=== PATIENT | female | born 1940 | race Caucasian/White ===

== ENCOUNTER → 2017-09-23 | Day surgery (SDC) | payer MEDICARE ==
[~2017-09-23] VITALS: Ht 175.3 cm; Wt 90.8 kg
[~2017-09-23] MED LIST: ALPR0.25 PO; AMLO5TAB2 PO; APIX5TAB PO; CHLORHEXIDINE GLUCONATE 2 % 1 PACK (2 CLOTHS) TOPICAL PRN; COLL30T TOPICAL; DILT60TA PO; DIPH1TAB PO; FLURBIPROFEN 0.03% OPHT SOLN 2.5 ML BTL LEFT EYE SCH; FLUT1INH INH; FURO40TA PO; HYALURONIDASE/LIDOCAINE/BUPIVACAINE 5 ML SYR LEFT EYE ONE; HYALURONIDASE/LIDOCAINE/EPINEPHRINE/BUPIVACAINE 6 ML SYR LEFT EYE ONE; IBUP200T47 PO; INSU1INJ5 SQ; INSULIN HUMAN REGULAR 1,000 UNITS/10 ML VIAL SQ PRN; IPRASOL INH; LACTATED RINGER'S 1000 ML IV PRN; LEVO150T7 PO; LIDOCAINE HCL 1% PF 30 ML VIAL ONE; LISI2.5T3 PO; METF500T PO; METOPROLOL TARTRATE 25 MG TAB PO PRN; NOVOLOGP2 SQ; OMEP20TA93 PO; OXYGENDME NAS.CANULA; PAXI10TA8 PO; PHENYLEPHRINE HCL 10 MG/ML VIAL ONE; POVIDONE IODINE 5% (ANTISEPSIS KIT) 4 APPLICATIONS EACH NARE PRN; PRED10 PO; PROP40TA3 PO; PROPARACAINE HCL 0.5% OPHT SOLN 15 ML BTL LEFT EYE ONE; PROPOFOL 200 MG/20 ML AMP ONE; SIMV40TA PO; SODIUM CHLORID 0.9% 500 ML IV PRN; TOBRAMYCIN/DEXAMETHASONE OPTH OINT 3.5 GM TUBE ONE
[2017-09-23] MEDS: CYCLOPENTOLATE HCL 1% OPHT SOLN 2 ML BTL LEFT EYE SCH ×4 (07:44→07:59)
[2017-09-23] MEDS: TROPICAMIDE 1% OPHT SOLN 15 ML BTL LEFT EYE SCH ×4 (07:44→07:59)
[2017-09-23] MEDS: PHENYLEPHRINE HCL 10% OPTH SOLN 5 ML BTL LEFT EYE SCH ×4 (07:44→07:59)
[2017-09-23 07:45] VITALS: PULSE 61
[2017-09-23 08:34] VITALS: PULSE 86
[2017-09-23 09:45] VITALS: BP 118/48; PULSE 62; RESP 16; TEMP 97.5; O2SAT 97
--- NOTE | 2017-09-24 05:31 | MP ---
cc: JOSEPH VALDEZ M.D. [facility] #: [id number] DATE: 09/23/2017 PREOPERATIVE DIAGNOSIS: Visually significant cataract left eye. POSTOPERATIVE DIAGNOSIS: Visually significant cataract left eye. OPERATION: Phacoemulsification with posterior chamber lens implantation, left eye. SURGEON: Joseph Valdez MD ANESTHESIA: Retrobulbar with MAC. COMPLICATIONS: None. PROCEDURE: After informed consent was obtained, the patient was brought into the operative suite and placed on appropriate monitors by the Anesthesia Service. The patient had received a prior retrobulbar injection of local anesthetic by the Anesthesia Service in the holding area. The patient's operative eye was then prepped and draped in the usual sterile fashion. A wire lid speculum was placed. A paracentesis incision was made in the peripheral cornea with a 1 mm yuval keratome. The anterior chamber was filled with viscoelastic. The anterior chamber was then entered through a stepped, clear corneal incision using a sharp 3 mm yuval keratome. A circular tear capsulorrhexis was then made with a bent needle cystitome. Following hydrodissection of the lens nucleus with balanced saline, phacoemulsification of the nucleus was performed using a modified chopping technique. The remaining cortex was removed with irrigation/aspiration. The prior two procedures were both performed using the handpieces of the [employer] phaco unit. The capsular bag was then filled with viscoelastic. The intraocular lens was then injected into the capsular bag and positioned. The type of intraocular lens and its power can be found elsewhere in this chart. The remaining viscoelastic was then removed from the anterior chamber with the IA handpiece. The anterior chamber was reformed with balanced saline. The wound was then closed securely with stromal hydration. It was found to be watertight to an intraocular pressure of at least 30 mmHg by palpation. A small amount of balanced salt solution was then removed through the paracentesis site and the intraocular pressure at the end of the case was approximately 20 by palpation. All drapes were then removed. TobraDex ointment was then placed in the eye, which was closed beneath a semi-pressure patch dressing. The patient tolerated this procedure well and left the operating room awake and alert. The patient is to follow-up in my office in the morning. Joseph Valdez MD [facility]/SS[facility] /3:00 PM /5:30 AM
== END | disposition home or self-care (01) ==
LOC: PHSDC 06:48
PROVIDERS: ATTEND Optometrist Occupational Vision
DX: H25.812 Combined forms of age-related cataract, left eye (principal); I10 Essential (primary) hypertension; J44.9 Chronic obstructive pulmonary disease, unspecified
CPT/HCPCS: 00142; 66984; 82948; J2370; J7040; V2632

== ENCOUNTER → 2017-10-28 | Day surgery (SDC) | payer MEDICARE, MEDICAID ==
[~2017-10-28] VITALS: Ht 175.3 cm; Wt 93.0 kg
[~2017-10-28] MED LIST changes: -AMLO5TAB2 PO; -FLURBIPROFEN 0.03% OPHT SOLN 2.5 ML BTL LEFT EYE SCH; +FLURBIPROFEN 0.03% OPHT SOLN 2.5 ML BTL ONE; -HYALURONIDASE/LIDOCAINE/BUPIVACAINE 5 ML SYR LEFT EYE ONE; +HYALURONIDASE/LIDOCAINE/BUPIVACAINE 5 ML SYR RIGHT EYE ONE; -HYALURONIDASE/LIDOCAINE/EPINEPHRINE/BUPIVACAINE 6 ML SYR LEFT EYE ONE; -INSULIN HUMAN REGULAR 1,000 UNITS/10 ML VIAL SQ PRN; -LIDOCAINE HCL 1% PF 30 ML VIAL ONE; -OXYGENDME NAS.CANULA; -PHENYLEPHRINE HCL 10 MG/ML VIAL ONE; -PROPARACAINE HCL 0.5% OPHT SOLN 15 ML BTL LEFT EYE ONE; +PROPARACAINE HCL 0.5% OPHT SOLN 15 ML BTL RIGHT EYE ONE
[2017-10-28] MEDS: LIDOCAINE HCL 1% PF 30 ML VIAL ONE ×2 (07:19→09:13)
[2017-10-28 07:36] VITALS: PULSE 73
[2017-10-28] MEDS: CYCLOPENTOLATE HCL 1% OPHT SOLN 2 ML BTL RIGHT EYE SCH ×4 (07:53→08:08)
[2017-10-28] MEDS: TROPICAMIDE 1% OPHT SOLN 15 ML BTL RIGHT EYE SCH ×4 (07:53→08:08)
[2017-10-28] MEDS: PHENYLEPHRINE HCL 10% OPTH SOLN 5 ML BTL RIGHT EYE SCH ×4 (07:53→08:08)
[2017-10-28 08:42] VITALS: PULSE 77
[2017-10-28 08:50] VITALS: PULSE 69
[2017-10-28 09:30] VITALS: PULSE 61
[2017-10-28 10:10] VITALS: BP 112/70; PULSE 70; RESP 16; TEMP 97.7; O2SAT 98
--- NOTE | 2017-10-30 06:02 | MP ---
cc: JOSEPH VALDEZ M.D. [facility] NUMBER: [id number] DATE OF SURGERY: 10/28/2017 PREOPERATIVE DIAGNOSIS: Visually significant cataract right eye. POSTOPERATIVE DIAGNOSIS: Visually significant cataract right eye. OPERATION: Phacoemulsification with posterior chamber lens implantation, right eye. SURGEON: Joseph Valdez MD ANESTHESIA: Retrobulbar with MAC. COMPLICATIONS: None. PROCEDURE: After informed consent was obtained, the patient was brought into the operative suite and placed on appropriate monitors by the Anesthesia Service. The patient had received a prior retrobulbar injection of local anesthetic by the Anesthesia Service in the holding area. The patient's operative eye was then prepped and draped in the usual sterile fashion. A wire lid speculum was placed. A paracentesis incision was made in the peripheral cornea with a 1 mm yuval keratome. The anterior chamber was filled with viscoelastic. The anterior chamber was then entered through a stepped, clear corneal incision using a sharp 3 mm yuval keratome. A circular tear capsulorrhexis was then made with a bent needle cystitome. Following hydrodissection of the lens nucleus with balanced saline, phaco-emulsification of the nucleus was performed using a modified chopping technique. The remaining cortex was removed with irrigation/aspiration. The prior two procedures were both performed using the handpieces of the [employer] phaco unit. The capsular bag was then filled with viscoelastic. The intraocular lens was then injected into the capsular bag and positioned. The type of intraocular lens and its power can be found elsewhere in this chart. The remaining viscoelastic was then removed from the anterior chamber with the IA handpiece. The anterior chamber was reformed with balanced saline. The wound was then closed securely with stromal hydration. It was found to be watertight to an intraocular pressure of at least 30 mmHg by palpation. A small amount of balanced salt solution was then removed through the paracentesis site and the intraocular pressure at the end of the case was approximately 20 by palpation. All drapes were then removed. TobraDex ointment was then placed in the eye, which was closed beneath a semi-pressure patch dressing. The patient tolerated this procedure well and left the operating room awake and alert. The patient is to follow-up in my office in the morning. MD Danial Lundberg /9:35 AM /5:47 AM
== END | disposition home or self-care (01) ==
LOC: PHSDC 07:11
PROVIDERS: ATTEND Optometrist Occupational Vision
DX: H25.811 Combined forms of age-related cataract, right eye (principal); E11.9 Type 2 diabetes mellitus without complications
CPT/HCPCS: 00142; 66984; 82948; J7040; V2632